=== PATIENT | male | born 1955 | race Hispanic/Latino ===

== ENCOUNTER 2020-08-28 13:00 | Emergency (ER) | payer BC ==
[~2020-08-28] VITALS: Ht 157.5 cm; Wt 68.0 kg
[~2020-08-28 13:00] MED LIST: BYSTOLIC10 MG PO; PRAVASTATIN SOD40 MG PO
[2020-08-28] MEDS ORDERED: ATORVASTATIN CA40 MG PO (13:35)
[2020-08-28] MEDS ORDERED: JARDIANCE10 MG PO (13:35)
[2020-08-28] MEDS ORDERED: LISINOPRIL10 MG PO (13:35)
== END 2020-08-28 13:59 | disposition home or self-care (01) ==
LOC: ED 13:00
DX: R05 Cough (principal); R06.7 Sneezing